=== PATIENT | male | born 1950 | race Caucasian/White ===

== ENCOUNTER 2018-01-24 07:30 | Outpatient (CLI) | payer OTHER ==
[~2018-01-24 07:30] MED LIST: ASPIR 8181 MG; ATORVASTATIN CA10 MG; COZAAR25 MG; GLUCOPHAGE XR500 MG; TOPROL XL25 M1
== END 2018-01-24 11:45 | disposition home or self-care (01) ==
LOC: NUCLEAR 07:30
DX: I25.10 Atherosclerotic heart disease of native coronary artery without angina pectoris (principal); I20.0 Unstable angina
CPT/HCPCS: 78452; 93017; A9500

== ENCOUNTER → 2022-08-01 | Emergency (ER) | payer OTHER ==
[~2022-08-01] VITALS: Ht 182.9 cm; Wt 102.1 kg
[~2022-08-01] MED LIST changes: +ZETIA10 MG
== END | disposition designated cancer center or children's hospital (05) ==
LOC: ER 09:02
DX: R07.89 Other chest pain (principal); R42 Dizziness and giddiness; E11.9 Type 2 diabetes mellitus without complications; I10 Essential (primary) hypertension; I51.9 Heart disease, unspecified; I25.2 Old myocardial infarction; Z20.822 Contact with and (suspected) exposure to COVID-19